=== PATIENT | female | born 1995 | race Two or more races ===

== ENCOUNTER → 2025-02-15 | Emergency (ER) | payer OTHER ==
[~2025-02-15] VITALS: Ht 177.8 cm; Wt 59.0 kg
[~2025-02-15] MED LIST: 0.9 % SODIUM CHLORIDE 1,000 ML IV STA; FAMOTIDINE/PF 20 MG/2 ML VIAL IV PUSH STA; FAMOTIDINE/PF 20 MG/2 ML VIAL ONE; HYOSCYAMINE SULFATE 0.125 MG TAB.SUBL ONE; HYOSCYAMINE SULFATE 0.125 MG TAB.SUBL SL STA; ONDANSETRON HCL 2 MG/ML VIAL IV STA; ONDANSETRON HCL 2 MG/ML VIAL ONE; TRAMADOL HCL 50 MG TABLET PO STA
[2025-02-15 07:28] VITALS: BP 149/95; O2SAT 100
[2025-02-15 09:24] LABS: BASO % 0.2 % (0.1-1.2); EOS # 0.06 (0.04-0.54); EOS % 1.4 % (0.7-7.0); LYMPH # 0.78 (1.18-3.74); LYMPH % 17.8 % (19.3-53.1); MEAN PLATELET VOLUME 11.80 fl (9.4-12.4); MONO # 0.40 (0.24-0.82); MONO % 9.1 % (4.7-12.5); NEUT # 3.12 (1.56-6.13); NEUT % 71.3 % (34.0-71.1); RED CELL DISTRIBUTION WIDTH 12.5 % (11.6-14.4)
[2025-02-15 09:53] LABS: ALT/SGPT 27.0 U/L (12-78); AST/SGOT 19.0 U/L (15-37); BILIRUBIN TOTAL 0.48 mg/dL (0.3-1.2); BUN CREA RATIO 25.0 (7.0-25.0); CREATININE SERUM 0.36 mg/dL (0.55-1.02); GFR 216.22; GLOBULINA 4.1 G/DL (2.4-3.5); GLUCOSE FASTING 126.0 mg/dL (65-100); OSMOLALITY SERUM 285.0 MOSM/KG (275-295)
[2025-02-15 11:34] LABS: URINE APPEARANCE Clear; URINE BILIRRUBIN Negative (NEGATIVE); URINE BLOOD Negative; URINE COLOR Yellow; URINE GLUCOSE Negative (NEGATIVE); URINE KETONE Negative (NEGATIVE); URINE LEUKOCYTE Small; URINE NITRATE Negative; URINE PROTEIN Negative (NEGATIVE); URINE UROBILINOGEN 0.2 E.U./dl
[2025-02-15 11:39] LABS: URINE EPITHELIAL CELLS 4.4 uL (0.0-38.8); URINE RBC 2.4 uL (0.0-20.8); URINE WBC 351.2 uL (0.0-23.2)
[2025-02-15 12:08] LABS: URINE CAST 0.28 uL (0.0-1.40)
== END | disposition left against medical advice (07) ==
LOC: ER 07:04
PROVIDERS: General Practice
DX: R10.32 Left lower quadrant pain (principal); R10.9 Unspecified abdominal pain